=== PATIENT | female | born 1950 | race Caucasian/White ===

== ENCOUNTER 2019-09-12 15:39 | Day surgery (SDC) | payer BC, MEDICARE ==
[~2019-09-12] VITALS: Ht 160 cm; Wt 79.5 kg
[~2019-09-12 15:39] MED LIST: GLYCOPYRROLATE 0.2MG/1ML, 5ML ONE
[2019-09-12] MEDS ORDERED: LACTATED RINGERS 1,000 ML IV SCH (15:57)
[2019-09-12] MEDS ORDERED: ATOR-2 PO (16:07)
[2019-09-12] MEDS ORDERED: LISI40TA PO (16:07)
[2019-09-12] MEDS ORDERED: ASPI-515 PO (16:24)
[2019-09-12] MEDS ORDERED: GABAPENTIN 300 MG CAPSULE PO STA (16:25)
[2019-09-12] MEDS ORDERED: ACETAMINOPHEN 500 MG TABLET PO STA (16:25)
[2019-09-12] MEDS ORDERED: atorvastatin (16:29)
[2019-09-12] MEDS ORDERED: lisinopril (16:29)
[2019-09-12] MEDS ORDERED: PLEASE ENTER ALLERGIES MC SCH (16:30)
[2019-09-12] MEDS ORDERED: PLEASE ENTER HEIGHT AND WEIGHT MC SCH (16:30)
[2019-09-12] MEDS ORDERED: GABAPENTIN 300 MG CAPSULE ONE (16:31)
[2019-09-12] MEDS ORDERED: ACETAMINOPHEN 500 MG TABLET ONE (16:31)
[2019-09-12] MEDS ORDERED: BUPIVACAINE/PF 0.5% ONE (17:25)
[2019-09-12] MEDS ORDERED: EPINEPHRINE 1 MG/ML, 1ML ONE (17:25)
[2019-09-12] MEDS ORDERED: FENTANYL PF 250 MCG/5ML ONE (17:26)
[2019-09-12 17:30] LABS: ALANINE AMINOTRANSFERASE 30 U/L (12-78); ALBUMIN 3.7 g/dL (3.4-5.0); ANION GAP 7 mmol/L (5-15); CALCIUM 9.1 mg/dL (8.5-10.1); CHLORIDE 108 mmol/L (98-107); CREATININE 0.81 mg/dL (0.55-1.02)
[2019-09-12 17:32] LABS: ALKALINE PHOSPHATASE 68 U/L (45-117); BILIRUBIN,TOTAL 0.6 mg/dL (0.2-1.0); TOTAL PROTEIN 7.7 g/dL (6.4-8.2)
[2019-09-12] MEDS ORDERED: LORazepam 2 MG/ML, 1ML IVPush PRN (18:00)
[2019-09-12] MEDS ORDERED: PROMETHAZINE 25 MG/ML, 1ML IV PRN (18:00)
[2019-09-12] MEDS ORDERED: LABETALOL 5MG/ML, 20ML IV PRN (18:00)
[2019-09-12] MEDS ORDERED: ONDANSETRON ODT 8 MG PO PRN (18:00)
[2019-09-12] MEDS ORDERED: HYDROmorphone 2 MG/ML, 1ML IVPush PRN (18:00)
[2019-09-12] MEDS ORDERED: OXYcodone 5 MG/5 ML ORAL.SOL UDC PO PRN (18:00)
[2019-09-12] MEDS ORDERED: FENTANYL PF 100 MCG/2ML IV PRN (18:00)
[2019-09-12] MEDS ORDERED: hydrALAzine 20 MG/ML, 1ML IV PRN (18:00)
[2019-09-12] MEDS ORDERED: ONDANSETRON 2MG/ML, 2ML IV PRN (18:00)
[2019-09-12] MEDS ORDERED: CEFAZOLIN 1,000 MG ONE (18:05)
[2019-09-12] MEDS ORDERED: DEXAMETHASONE 4 MG/ML, 1ML ONE (18:05)
[2019-09-12] MEDS ORDERED: ONDANSETRON 2MG/ML, 2ML ONE (18:05)
[2019-09-12] MEDS ORDERED: PROPOFOL 10 MG/ML, 20ML ONE (18:05)
[2019-09-12] MEDS ORDERED: FENTANYL PF 100 MCG/2ML ONE (18:31)
[2019-09-12] MEDS ORDERED: HYDROcodone/APAP 7.5-325MG/15ML UDC ONE (18:32)
[2019-09-12] MEDS ORDERED: HYDROcodone/APAP 7.5-325MG/15ML UDC PO PRN (19:00)
[2019-09-12 19:15] VITALS: BP 137/75
== END 2019-09-12 20:40 | disposition home or self-care (01) ==
LOC: OR 15:39 → 4NE 19:19 → OR 20:40
PROVIDERS: ATTEND Orthopaedic Surgery
DX: S82.51XA Displaced fracture of medial malleolus of right tibia, initial encounter for closed fracture (principal); I10 Essential (primary) hypertension; Z88.5 Allergy status to narcotic agent; Z85.3 Personal history of malignant neoplasm of breast; W19.XXXA Unspecified fall, initial encounter; Y93.89 Activity, other specified; Y92.89 Other specified places as the place of occurrence of the external cause; Y99.8 Other external cause status
CPT/HCPCS: 27766; 36415; 73600; 80053; 93005; C1713; J0171; J0690; J1100; J2405; J2704; J3010; J7120; 76000; G0378